=== PATIENT | female | born 1980 | race Caucasian/White ===

== ENCOUNTER → 2022-02-01 | Day surgery (SDC) | payer OTHER ==
[~2022-02-01] VITALS: Ht 170.2 cm; Wt 95.2 kg
[~2022-02-01] MED LIST: CYMBALTA 30MG C30 MG PO; NAPROXEN500 MG PO
[2022-02-01 13:07] LABS: HCG (URINE) SCREEN NEGATIVE (NEGATIVE)
[2022-02-01 13:29] LABS: BASOPHIL 0.4 % (0-2); EOSINOPHIL 1.3 % (0-5); HCT 36.6 % (37.0-47.0); HGB 11.4 g/dl (12.5-16.0); LYMPHOCYTE 26.5 % (15-48); MCH 26.4 pg (25.0-31.0); MCHC 31.1 g/dL (32.0-36.0); MCV 84.7 fL (78.0-100.0); MONOCYTE 6.3 % (0-12); MPV 10.1 fL (6.0-9.5); NEUTROPHIL 65.2 % (41-80); NRBC 0; PLT 307 K/uL (150-400); RBC 4.32 M/uL (4.20-5.40); RDW 14.3 % (11.5-14.0); WBC 6.8 K/uL (4.0-10.5)
== END | disposition home or self-care (01) ==
LOC: FAS 11:44
PROVIDERS: Oral & Maxillofacial Surgery
DX: K02.9 Dental caries, unspecified (principal); K04.7 Periapical abscess without sinus; F43.10 Post-traumatic stress disorder, unspecified; M19.90 Unspecified osteoarthritis, unspecified site; K01.1 Impacted teeth; Z88.8 Allergy status to other drugs, medicaments and biological substances
CPT/HCPCS: D7210; D7240; 36415; 84703; 85025; 93005; J1100; J2250; J2405; J2704; J7120